=== PATIENT | female | born 2000 | race African-American/Black ===

== ENCOUNTER 2022-10-12 21:49 | Emergency (ER) | payer OTHER ==
[~2022-10-12] VITALS: Ht 165.1 cm; Wt 63.6 kg
[2022-10-12] MEDS ORDERED: SODIUM CHLORIDE 0.9% 1,000 ML IV ONE (22:15)
[2022-10-12] MEDS ORDERED: DiphenhydrAMINE HCL 50 MG/ML VIAL IM ONE (23:30)
[2022-10-12] MEDS ORDERED: HALOPERIDOL LACTATE 5 MG/ML VIAL IM ONE (23:30)
[2022-10-13 06:53] VITALS: BP 105/60; PULSE 96; RESP 18
== END 2022-10-13 08:01 | disposition home or self-care (01) ==
LOC: EMS 21:52
DX: F10.129 Alcohol abuse with intoxication, unspecified (principal); R45.1 Restlessness and agitation; Y90.9 Presence of alcohol in blood, level not specified
CPT/HCPCS: 99285; 36415; 96372; G0480; J1200; J1630